=== PATIENT | male | born 1970 | race Caucasian/White ===

== ENCOUNTER 2022-10-06 11:33 | Emergency (ER) | payer MEDICAID ==
[~2022-10-06] VITALS: Ht 172.7 cm; Wt 80.0 kg
[~2022-10-06 11:33] MED LIST: ATOR40TA70 PO; CHOL125C7; LEVO150T8 PO; METF500S9 PO; MULT-1116 MT
[2022-10-06 13:04] LABS: BASOPHILS % 1.5 % (0.0-2.0); EOSINOPHILS % 3.3 % (0.0-5.0); LYMPHOCYTES % 26.2 % (20.0-50.0); MEAN CORPUSCULAR HEMOGLOBIN 33.4 pg (28.0-32.0); MEAN CORPUSCULAR VOLUME 96.1 fL (80.0-94.0); MEAN PLATELET VOLUME 10.7 fl (7.4-10.4); MONOCYTES % 5.5 % (2.0-8.0); NEUTROPHILS % 63.5 % (40.0-76.0); PLATELET 117 x1000/uL (130-400); RED CELL DISTRIBUTION WIDTH 13.3 % (11.6-14.6)
[2022-10-06 13:10] LABS: CHLORIDE 109 mEq/L (98-107)
[2022-10-06] MEDS ORDERED: LEVOTHYROXINE SODIUM 150MCG TABLET PO ONE (15:30)
[2022-10-06 15:49] VITALS: BP 139/82
== END 2022-10-06 15:54 | disposition home or self-care (01) ==
LOC: ER 11:42 → EDBEDREQ 12:35 → ER 15:54
DX: R55 Syncope and collapse (principal); R53.1 Weakness; R42 Dizziness and giddiness; E11.9 Type 2 diabetes mellitus without complications; Z79.899 Other long term (current) drug therapy
CPT/HCPCS: 36415; 71045; 80053; 83880; 84439; 84443; 84481; 84484; 85025; 93005; 99285

== ENCOUNTER 2024-09-10 15:34 | Emergency (ER) | payer OTHER ==
[~2024-09-10] VITALS: Ht 170.2 cm; Wt 98.0 kg
[~2024-09-10 15:34] MED LIST changes: +AMLO5TAB88 PO; +ATOR-2 PO; -ATOR40TA70 PO; -CHOL125C7; -METF500S9 PO
[2024-09-10 15:38] VITALS: O2SAT 99
[2024-09-10 16:43] LABS: BASOPHILS % 0.7 % (0.0-2.0); EOSINOPHILS % 1.8 % (0.0-5.0); HEMATOCRIT. 29.8 % (42.0-52.0); HEMOGLOBIN. 9.8 g/dL (14.0-18.0); LYMPHOCYTES % 15.6 % (20.0-50.0); MEAN CORPUSCULAR HGB CONC 32.9 g/dL (31.0-37.0); MEAN CORPUSCULAR VOLUME 97.5 fL (80.0-94.0); MEAN PLATELET VOLUME 9.4 fl (7.4-10.4); MONOCYTES % 5.1 % (2.0-8.0); NEUTROPHILS % 76.8 % (40.0-76.0); PLATELET 183 x1000/uL (130-400); RED BLOOD CELL COUNT 3.05 mill/uL (4.7-6.1); RED CELL DISTRIBUTION WIDTH 14.6 % (11.6-14.6); WHITE BLOOD COUNT 8.5 x1000/uL (4.5-11.0)
[2024-09-10 16:44] LABS: POTASSIUM 4.3 mEq/L (3.5-5.1)
[2024-09-10 16:46] LABS: CALCIUM 8.3 mg/dL (8.7-10.4)
[2024-09-10 16:50] LABS: CREATININE 1.8 mg/dL (0.6-1.3)
[2024-09-10 19:38] VITALS: BP 126/77; PULSE 83; RESP 17; TEMP 36.94740; O2SAT 98
== END 2024-09-10 19:39 | disposition home or self-care (01) ==
LOC: ER 15:34
DX: R55 Syncope and collapse (principal); E78.00 Pure hypercholesterolemia, unspecified; E11.9 Type 2 diabetes mellitus without complications; I10 Essential (primary) hypertension; Z79.899 Other long term (current) drug therapy; Z86.73 Personal history of transient ischemic attack (TIA), and cerebral infarction without residual deficits
CPT/HCPCS: 36415; 71045; 80048; 84484; 85025; 99284

== ENCOUNTER 2024-09-22 14:53 | Emergency (ER) | payer OTHER ==
[~2024-09-22] VITALS: Ht 172.7 cm; Wt 81.0 kg
[2024-09-22 14:56] VITALS: O2SAT 99
[2024-09-22 15:30] VITALS: TEMP 36.39180
[2024-09-22 15:48] LABS: BASOPHILS % 0.8 % (0.0-2.0); EOSINOPHILS % 1.5 % (0.0-5.0); HEMATOCRIT. 24.7 % (42.0-52.0); HEMOGLOBIN. 8.3 g/dL (14.0-18.0); LYMPHOCYTES % 28.8 % (20.0-50.0); MEAN CORPUSCULAR HEMOGLOBIN 31.5 pg (28.0-32.0); MEAN CORPUSCULAR HGB CONC 33.6 g/dL (31.0-37.0); MONOCYTES % 5.5 % (2.0-8.0); NEUTROPHILS % 63.4 % (40.0-76.0); PLATELET 212 x1000/uL (130-400); RED BLOOD CELL COUNT 2.62 mill/uL (4.7-6.1); RED CELL DISTRIBUTION WIDTH 14.3 % (11.6-14.6); WHITE BLOOD COUNT 5.3 x1000/uL (4.5-11.0)
[2024-09-22 15:52] LABS: CHLORIDE 111 mEq/L (98-107); POTASSIUM 3.9 mEq/L (3.5-5.1); SODIUM 143 mEq/L (136-145)
[2024-09-22 15:53] LABS: CARBON DIOXIDE 24 mEq/L (21-32)
[2024-09-22 15:58] LABS: CREATININE 1.7 mg/dL (0.6-1.3); GLUCOSE 100 mg/dL (70-105); TROPONIN I HIGH SENSITIVITY 12 ng/L (3.0-53); UREA NITROGEN BLOOD 22 mg/dL (9-23)
[2024-09-22 16:00] LABS: ALANINE AMINOTRANSFERASE 52 IU/L (10-49); ASPARTATE AMINOTRANSFERASE 67 IU/L (<34)
[2024-09-22 16:01] LABS: BILIRUBIN DIRECT 0.1 mg/dL (<=3.0); BILIRUBIN TOTAL 0.4 mg/dL (0.1-1.0); PROTEIN TOTAL 5.9 g/dL (6.0-8.3)
[2024-09-22 16:12] LABS: ETHANOL BLOOD < 10 mg/dL (<10)
[2024-09-22 16:55] LABS: CLARITY URINE CLEAR (CLEAR); COLOR URINE YELLOW (YELLOW); GLUCOSE URINE NEGATIVE (NEGATIVE); KETONES URINE NEGATIVE (NEGATIVE); LEUKOCYTE ESTERASE URINE NEGATIVE (NEGATIVE); NITRITE URINE NEGATIVE (NEGATIVE); OCCULT BLOOD URINE NEGATIVE (NEGATIVE); PROTEIN URINE 2+ (NEGATIVE); SPECIFIC GRAVITY URINE 1.011 (1.005-1.030)
[2024-09-22] MEDS: CALCIUM GLUCONATE 100MG/ML 10ML VIAL IV NR (17:07)
[2024-09-22 17:08] LABS: BACTERIA URINE NONE SEEN; RBC URINE 0-2 /hpf (0-2); SQUAMOUS EPITHELIAL CELL URINE 1+ /lpf (RARE/1+); WBC URINE 0-2 /hpf (0-2)
[2024-09-22] MEDS: SODIUM CHLORIDE 0.9% 1,000 ML IV NR (17:12)
[2024-09-22 17:30] VITALS: BP 160/89; PULSE 59; RESP 17; O2SAT 100
== END 2024-09-22 19:04 | disposition short-term general hospital (02) ==
LOC: ER 14:53 → CANBEDREQ 16:37 → ER 19:04
DX: R53.1 Weakness (principal); I95.9 Hypotension, unspecified; I12.9 Hypertensive chronic kidney disease with stage 1 through stage 4 chronic kidney disease, or unspecified chronic kidney disease; E11.22 Type 2 diabetes mellitus with diabetic chronic kidney disease; E78.00 Pure hypercholesterolemia, unspecified; Z79.899 Other long term (current) drug therapy; Z86.73 Personal history of transient ischemic attack (TIA), and cerebral infarction without residual deficits; Z98.890 Other specified postprocedural states
CPT/HCPCS: 80076; 80048; 81003; 80320; 85025; 84484; 36415; 71045; 93005; 96361; 96374; 99285; J0610; Z7610 ×3; A4606; G0480

== ENCOUNTER 2025-06-16 13:36 | Emergency (ER) | payer OTHER ==
[~2025-06-16] VITALS: Ht 177.8 cm; Wt 80.0 kg
[2025-06-16 13:43] VITALS: O2SAT 96
[2025-06-16] MEDS: SODIUM CHLORIDE 0.9% 1,000 ML IV ONE (14:16)
[2025-06-16 14:27] LABS: BASOPHILS % 1.0 % (0.0-2.0); EOSINOPHILS % 1.1 % (0.0-5.0); HEMATOCRIT. 27.4 % (42.0-52.0); HEMOGLOBIN. 9.5 g/dL (14.0-18.0); LYMPHOCYTES % 19.7 % (20.0-50.0); MEAN PLATELET VOLUME 9.6 fl (7.4-10.4); MONOCYTES % 6.8 % (2.0-8.0); NEUTROPHILS % 71.4 % (40.0-76.0); PLATELET 127 x1000/uL (130-400); RED BLOOD CELL COUNT 2.83 mill/uL (4.7-6.1); RED CELL DISTRIBUTION WIDTH 12.9 % (11.6-14.6)
[2025-06-16 14:49] LABS: ETHANOL BLOOD < 10 mg/dL (<10); UREA NITROGEN BLOOD 44 mg/dL (9-23)
[2025-06-16 14:51] LABS: ASPARTATE AMINOTRANSFERASE 26 IU/L (<34); BILIRUBIN DIRECT 0.1 mg/dL (<=3.0); BILIRUBIN TOTAL 0.6 mg/dL (0.1-1.0); PROTEIN TOTAL 6.1 g/dL (6.0-8.3); TROPONIN I HIGH SENSITIVITY 16 ng/L (3.0-53)
[2025-06-16 14:54] LABS: CREATININE 2.8 mg/dL (0.6-1.3)
[2025-06-16 18:51] LABS: TROPONIN I HIGH SENSITIVITY 16 ng/L (3.0-53)
[2025-06-16 19:52] VITALS: BP 125/98; PULSE 68; RESP 18; TEMP 36.5; O2SAT 98
== END 2025-06-16 20:10 | disposition short-term general hospital (02) ==
LOC: ER 13:36 → CANBEDREQ 18:12 → ER 20:10
DX: R55 Syncope and collapse (principal); N17.9 Acute kidney failure, unspecified; D64.9 Anemia, unspecified; E78.00 Pure hypercholesterolemia, unspecified; E11.9 Type 2 diabetes mellitus without complications; I10 Essential (primary) hypertension; Z79.899 Other long term (current) drug therapy; Z86.73 Personal history of transient ischemic attack (TIA), and cerebral infarction without residual deficits
CPT/HCPCS: 80076; 80048; 80320; 85025; 84484; 36415; 73502; 93005; 99285; J7030; Z7610; A4606; G0480